=== PATIENT | female | born 1970 | race Caucasian/White ===

== ENCOUNTER 2018-03-19 01:05 | Inpatient (IN) | payer SELFPAY ==
[~2018-03-19] VITALS: Ht 165.1 cm; Wt 68.0 kg
[2018-03-19] MEDS ORDERED: MECLIZINE 25MG TABLET PO ONE (02:00)
[2018-03-19 03:37] LABS: BASOPHILS % 1.4 % (0.0-2.0); EOSINOPHILS % 7.1 % (0.0-5.0); HEMATOCRIT. 34.3 % (36.0-48.0); HEMOGLOBIN. 11.5 g/dL (12.0-16.0); LYMPHOCYTES % 28.1 % (20.0-50.0); MEAN CORPUSCULAR HEMOGLOBIN 26.3 pg (28.0-32.0); MEAN CORPUSCULAR VOLUME 78.8 fL (81.0-99.0); MONOCYTES % 7.4 % (2.0-8.0); PLATELET 267 x1000/uL (130-400); RED BLOOD CELL COUNT 4.35 mill/uL (4.2-5.4)
[2018-03-19 03:43] LABS: CHLORIDE 107 mEq/L (98-107)
[2018-03-19 03:45] LABS: PROTHROMBIN TIME 10.6 sec (9.4-11.6)
[2018-03-19 03:47] LABS: ETHANOL BLOOD < 10 mg/dL
[2018-03-19 05:54] LABS: CLARITY URINE CLEAR (CLEAR); COLOR URINE YELLOW (YELLOW); KETONES URINE NEGATIVE (NEGATIVE); LEUKOCYTE ESTERASE URINE 1+ (NEGATIVE); NITRITE URINE NEGATIVE (NEGATIVE); OCCULT BLOOD URINE 1+ (NEGATIVE); PH URINE 6.5 (4.5-8.0); PROTEIN URINE NEGATIVE (NEGATIVE); SPECIFIC GRAVITY URINE 1.012 (1.005-1.030); UROBILINOGEN URINE 0.2 E.U./dL (0.2-1.0)
[2018-03-19 06:30] LABS: *AMPHETAMINES SCREEN URINE NEGATIVE (NEGATIVE)
[2018-03-19 06:31] LABS: *BARBITURATES SCREEN URINE NEGATIVE (NEGATIVE); *BENZODIAZEPINES SCREEN URINE NEGATIVE (NEGATIVE); *COCAINE SCREEN URINE NEGATIVE (NEGATIVE); METHADONE URINE SCREEN NEGATIVE (NEGATIVE); OPIATES URINE SCREEN NEGATIVE (NEGATIVE); PHENCYCLIDINE URINE SCREEN NEGATIVE (NEGATIVE)
[2018-03-19 06:32] LABS: CANNABINOID URINE SCREEN NEGATIVE (NEGATIVE)
[2018-03-19 08:00] VITALS: BP 105/66
[2018-03-19] MEDS ORDERED: ONDANSETRON HCL 4MG/2ML VIAL IV PRN (08:45)
[2018-03-19] MEDS ORDERED: ACETAMINOPHEN 325MG TABLET PO PRN (08:45)
[2018-03-19] MEDS ORDERED: DIPHENHYDRAMINE 50MG/ML VIAL IV PRN (08:45)
[2018-03-19] MEDS ORDERED: GUAIFENESIN 200MG/10ML SUGAR FREE UDC PO PRN (08:45)
[2018-03-19] MEDS ORDERED: MAGNESIUM/ALUMINUM HYDROXIDE/SIMETHICONE 30ML UDC PO PRN (08:45)
[2018-03-19] MEDS ORDERED: DOCUSATE SODIUM 100MG CAPSULE PO PRN (08:45)
[2018-03-19] MEDS ORDERED: IPRATROPIUM/ALBUTEROL 0.5-3(2.5)MG/3ML NEB INH PRN (08:45)
[2018-03-19] MEDS ORDERED: CLONIDINE 0.1MG TABLET PO PRN (08:45)
[2018-03-19] MEDS ORDERED: KETOROLAC 15MG/ML VIAL IV PRN (08:45)
[2018-03-19] MEDS ORDERED: NA PHOS,M-B/NA PHOS,DI-BA ENEMA 118ML PR PRN (08:45)
[2018-03-19 09:47] VITALS: BP 105/66
[2018-03-19] MEDS: ENOXAPARIN 40MG/0.4ML SYR SUBCUT SCH (10:54)
[2018-03-19] MEDS: FAMOTIDINE 20MG TABLET PO SCH ×2 (10:54→21:28)
[2018-03-19 12:00] VITALS: BP 99/55
[2018-03-19] MEDS: FERROUS SULFATE 300MG/5ML UDC PO SCH ×2 (13:08→16:51)
[2018-03-19 15:56] LABS: CREATINE KINASE 84 IU/L (26-192)
[2018-03-19 15:57] LABS: CREATINE KINASE MB FRACTION < 0.5 ng/mL (0.5-3.6)
[2018-03-19 16:00] VITALS: BP_SYST 93; BP_SYST 97; BP_SYST 98; BP_DIAS 60; BP_DIAS 61; BP_DIAS 62
[2018-03-19] MEDS ORDERED: LEVOFLOXACIN 500MG PREMIX 100 ML IV SCH (16:00)
[2018-03-19] MEDS ORDERED: ZOLPIDEM TARTRATE 5MG TABLET PO PRN (19:00)
[2018-03-19 20:00] VITALS: BP 102/61
[2018-03-19 22:55] LABS: CREATINE KINASE 72 IU/L (26-192); CREATINE KINASE MB FRACTION < 0.5 ng/mL (0.5-3.6)
[2018-03-20] VITALS: BP 102/60
[2018-03-20 04:00] VITALS: BP 96/62
[2018-03-20] MEDS: FAMOTIDINE 20MG TABLET PO SCH (08:42)
[2018-03-20] MEDS: ENOXAPARIN 40MG/0.4ML SYR SUBCUT SCH (08:43)
[2018-03-20] MEDS: FERROUS SULFATE 300MG/5ML UDC PO SCH (08:43)
[2018-03-20 12:52] VITALS: BP 98/75
== END 2018-03-20 14:18 | disposition home or self-care (01) | DRG 111 ==
LOC: ER 01:17 → 5WST 05:13 → ENRESERV 08:36
PROVIDERS: ADMIT Internal Medicine; ATTEND Internal Medicine
DX: H81.10 Benign paroxysmal vertigo, unspecified ear (principal); N39.0 Urinary tract infection, site not specified; D63.8 Anemia in other chronic diseases classified elsewhere; Z88.8 Allergy status to other drugs, medicaments and biological substances; Z79.899 Other long term (current) drug therapy
CPT/HCPCS: 36415; 70450; 71045; 80053; 80061; 80305; 81003; 81025; 82550; 82553; 82607; 82746; 83036; 83540; 83550; 84484; 85025; 85610; 87086; 93005; 93970; 99285; G0482; J1650; J1956; J7050; J8597

== ENCOUNTER 2018-06-04 08:37 | Emergency (ER) | payer SELFPAY ==
[~2018-06-04] VITALS: Ht 165.1 cm; Wt 75.0 kg
[2018-06-04 10:05] LABS: BASOPHILS % 0.8 % (0.0-2.0); EOSINOPHILS % 3.8 % (0.0-5.0); HEMATOCRIT. 33.4 % (36.0-48.0); LYMPHOCYTES % 16.9 % (20.0-50.0); MEAN CORPUSCULAR HEMOGLOBIN 26.5 pg (28.0-32.0); MEAN CORPUSCULAR VOLUME 80.6 fL (81.0-99.0); MEAN PLATELET VOLUME 9.2 fl (7.4-10.4); MONOCYTES % 5.3 % (2.0-8.0); NEUTROPHILS % 73.2 % (40.0-76.0); PLATELET 218 x1000/uL (130-400); RED BLOOD CELL COUNT 4.15 mill/uL (4.2-5.4); RED CELL DISTRIBUTION WIDTH 17.4 % (11.6-14.6)
[2018-06-04 10:10] LABS: CHLORIDE 107 mEq/L (98-107)
[2018-06-04 10:15] LABS: PARTIAL THROMBOPLASTIN TIME 26.2 sec (23.4-31.0); PROTHROMBIN TIME 10.3 sec (9.4-11.6)
[2018-06-04 10:57] VITALS: BP 115/64
== END 2018-06-04 10:58 | disposition home or self-care (01) ==
LOC: ER 08:50
DX: R00.2 Palpitations (principal); I10 Essential (primary) hypertension; Z88.1 Allergy status to other antibiotic agents; Z88.6 Allergy status to analgesic agent
CPT/HCPCS: 36415; 71045; 80053; 83690; 84484; 85025; 85610; 85730; 93005; 99285; Z7610

== ENCOUNTER 2022-08-19 20:51 | Emergency (ER) | payer SELFPAY ==
[~2022-08-19] VITALS: Ht 165.1 cm; Wt 72.0 kg
[2022-08-19 23:45] LABS: BASOPHILS % 0.9 % (0.0-2.0); HEMATOCRIT. 31.4 % (36.0-48.0); HEMOGLOBIN. 10.1 g/dL (12.0-16.0); LYMPHOCYTES % 23.2 % (20.0-50.0); MEAN CORPUSCULAR HEMOGLOBIN 24.4 pg (28.0-32.0); MEAN CORPUSCULAR VOLUME 75.7 fL (81.0-99.0); MEAN PLATELET VOLUME 8.6 fl (7.4-10.4); MONOCYTES % 6.8 % (2.0-8.0); NEUTROPHILS % 62.1 % (40.0-76.0); PLATELET 285 x1000/uL (130-400); RED BLOOD CELL COUNT 4.15 mill/uL (4.2-5.4); RED CELL DISTRIBUTION WIDTH 16.1 % (11.6-14.6)
[2022-08-19 23:50] LABS: CHLORIDE 106 mEq/L (98-107)
[2022-08-19 23:53] LABS: PROTHROMBIN TIME 10.6 sec (9.6-11.0)
[2022-08-20 00:56] LABS: CLARITY URINE CLEAR (CLEAR); COLOR URINE YELLOW (YELLOW); KETONES URINE NEGATIVE (NEGATIVE); LEUKOCYTE ESTERASE URINE NEGATIVE (NEGATIVE); NITRITE URINE NEGATIVE (NEGATIVE); OCCULT BLOOD URINE 1+ (NEGATIVE); PROTEIN URINE NEGATIVE (NEGATIVE); SPECIFIC GRAVITY URINE 1.014 (1.005-1.030); UROBILINOGEN URINE 0.2 E.U./dL (0.2-1.0)
[2022-08-20] MEDS ORDERED: KETOROLAC 15MG/ML VIAL IV ONE (01:00)
[2022-08-20] MEDS ORDERED: DICY10CA88 MT (01:16)
[2022-08-20 01:30] VITALS: BP 120/74
[2022-08-20] MEDS ORDERED: ONDANSETRON HCL 4MG/2ML INJ IV ONE (01:30)
== END 2022-08-20 02:00 | disposition home or self-care (01) ==
LOC: ER 20:51
DX: R10.11 Right upper quadrant pain (principal); R11.0 Nausea
CPT/HCPCS: 36415; 76705; 80053; 81003; 83690; 85025; 85610; 96374; 96375; 99284; J1885; J2405

== ENCOUNTER 2025-03-24 16:57 | Emergency (ER) | payer SELFPAY ==
[~2025-03-24] VITALS: Ht 162.6 cm; Wt 50.0 kg
[~2025-03-24 16:57] MED LIST: DICY-18 MT
[2025-03-24 17:09] VITALS: O2SAT 100
[2025-03-24 17:34] LABS: EOSINOPHILS % 4.6 % (0.0-5.0); HEMATOCRIT. 37.8 % (36.0-48.0); HEMOGLOBIN. 12.5 g/dL (12.0-16.0); LYMPHOCYTES % 22.3 % (20.0-50.0); MEAN CORPUSCULAR HEMOGLOBIN 28.3 pg (28.0-32.0); MEAN CORPUSCULAR HGB CONC 33.2 g/dL (31.0-37.0); MEAN CORPUSCULAR VOLUME 85.2 fL (81.0-99.0); MEAN PLATELET VOLUME 8.7 fl (7.4-10.4); MONOCYTES % 5.2 % (2.0-8.0); NEUTROPHILS % 66.9 % (40.0-76.0); PLATELET 213 x1000/uL (130-400); RED BLOOD CELL COUNT 4.43 mill/uL (4.2-5.4); RED CELL DISTRIBUTION WIDTH 14.9 % (11.6-14.6); WHITE BLOOD COUNT 5.9 x1000/uL (4.5-11.0)
[2025-03-24 17:42] LABS: CARBON DIOXIDE 27 mEq/L (21-32); CHLORIDE 106 mEq/L (98-107); POTASSIUM 3.6 mEq/L (3.5-5.1); SODIUM 140 mEq/L (136-145)
[2025-03-24 17:47] LABS: CREATININE 0.7 mg/dL (0.6-1.0)
[2025-03-24 17:48] LABS: GLUCOSE 133 mg/dL (70-105); UREA NITROGEN BLOOD 14 mg/dL (9-23)
[2025-03-24 17:49] LABS: ALANINE AMINOTRANSFERASE 16 IU/L (10-49); ALBUMIN 4.1 g/dL (3.2-4.8); ASPARTATE AMINOTRANSFERASE 16 IU/L (<34)
[2025-03-24 17:50] LABS: BILIRUBIN DIRECT < 0.1 mg/dL (<=3.0); BILIRUBIN TOTAL 0.3 mg/dL (0.1-1.0); PROTEIN TOTAL 7.3 g/dL (6.0-8.3)
[2025-03-24 17:59] LABS: TROPONIN I HIGH SENSITIVITY < 4 ng/L (3.0-34)
[2025-03-24 18:47] LABS: CLARITY URINE CLEAR (CLEAR); COLOR URINE YELLOW (YELLOW); GLUCOSE URINE NEGATIVE (NEGATIVE); KETONES URINE NEGATIVE (NEGATIVE); LEUKOCYTE ESTERASE URINE 2+ (NEGATIVE); NITRITE URINE NEGATIVE (NEGATIVE); OCCULT BLOOD URINE NEGATIVE (NEGATIVE); PROTEIN URINE NEGATIVE (NEGATIVE); SPECIFIC GRAVITY URINE 1.014 (1.005-1.030); UROBILINOGEN URINE 0.2 E.U./dL (0.2-1.0)
[2025-03-24] MEDS: KETOROLAC 30MG/ML VIAL IM NR (18:50)
[2025-03-24] MEDS: ONDANSETRON 4MG ODT PO NR (18:50)
[2025-03-24] MEDS: FAMOTIDINE 20MG TABLET PO NR (18:50)
[2025-03-24 19:09] LABS: BACTERIA URINE 1+; RBC URINE NONE SEEN /hpf (0-2); SQUAMOUS EPITHELIAL CELL URINE FEW /lpf (RARE/1+)
[2025-03-24] MEDS ORDERED: FAMO-135 MT (20:00)
[2025-03-24] MEDS ORDERED: MAG-55 MT (20:00)
[2025-03-24] MEDS ORDERED: SULF1TAB48 MT (20:02)
[2025-03-24 20:10] VITALS: BP 124/67; PULSE 83; RESP 14; TEMP 36.6; O2SAT 100
== END 2025-03-24 20:11 | disposition home or self-care (01) ==
LOC: ER 16:57
DX: K29.70 Gastritis, unspecified, without bleeding (principal); N39.0 Urinary tract infection, site not specified; Z88.5 Allergy status to narcotic agent
CPT/HCPCS: 99285; 76705; 80076; 80048; 81003; 83690; 85025; 84484; 36415; 93005; 96372; J1885; Q0162